=== PATIENT | male | born 1960 | race Caucasian/White ===

== ENCOUNTER 2022-06-16 20:07 | Observation (INO) | payer BC ==
[2022-06-16 21:30] LABS: Absolute Lymphocytes (CBC) 2.3 K/uL (0.7-4.9); Hematocrit 43.2 % (39.6-49.0); Lymphocytes % 15.4 % (15.3-44.8); MCV 90.9 fL (80-100); MPV 9.3 fL (7.6-11.3); RBC Red Blood Cell Count 4.75 M/uL (4.33-5.43)
[2022-06-16 21:49] LABS: Albumin 3.7 g/dL (3.4-5.0); Bilirubin Direct 0.1 mg/dL (0-0.2); Bilirubin Total 0.5 mg/dL (0.2-1.0); Magnesium 1.9 mg/dL (1.8-2.4); Potassium 4.4 mmol/L (3.5-5.1); Protein, Total 7.3 g/dL (6.4-8.2); Troponin High Sensitivity 5.5 pg/mL (<58.9)
--- NOTE | 2022-06-16 21:51 | RAD REPORT ---
EXAM DESCRIPTION: RAD - Chest Single View - 06/16/2022 9:43 pm CLINICAL HISTORY: syncope Chest pain. COMPARISON: No comparisons FINDINGS: Portable technique limits examination quality. The lungs are grossly clear. The heart is normal in size. No displaced fractures. IMPRESSION: No acute intrathoracic process suspected.
--- NOTE | 2022-06-16 22:16 | EDPHYS ---
Physician Documentation [facility] Name: Deejay Martin Age: 62 yrs Sex: Male : 1960 Arrival Date: 06/16/2022 Time: 20:10 Bed 16 Private MD: ED Physician Nando Pederson HPI: 06/16 20:37 This 62 yrs old Male presents to ER via EMS with complaints of Syncope. ms3 20:37 The patient has experienced syncope. 62-year-old male with past medical history of ms3 hypertension presents via [facility] after having dizziness, nausea, sweating and laying down while at [employer]. Patient states he then got up and was going back to [employer] study when he passed out. EMS states patient's blood glucose level was 100, patient was normotensive, 4 mg of Zofran was administered. Patient denies pain at this time. Patient states he was unconscious for approximately 5 minutes. Patient endorses nausea, shortness of breath. Patient denies chest pain, vomiting, abdominal pain.. Historical: - Allergies: 20:18 PENICILLINS; bm7 - Home Meds: 20:18 propranolol 10 mg Oral tab 1 tab every 8 hours [Active]; bm7 - PMHx: 20:18 Hypertensive disorder; bm7 - PSHx: 20:18 None; bm7 - Immunization history:: Adult Immunizations up to date, Client reports receiving the 2nd dose of the Covid vaccine, Client reports receiving the 1st dose of the Covid vaccine. - Social history:: Smoking status: Patient denies any tobacco usage or history of. ROS: 20:37 Constitutional: Negative for fever, and chills. Neck: Negative for injury, pain, and ms3 swelling, Cardiovascular: Negative for chest pain, and palpitations. Respiratory: Negative for shortness of breath, cough, wheezing, and pleuritic chest pain. 20:37 Skin: Negative for injury, rash, and discoloration. 20:37 Abdomen/GI: Positive for nausea. 20:37 Neuro: Positive for dizziness, syncope. 20:37 All other systems are negative. Exam: 20:24 ECG was reviewed by the Attending Physician. ms3 20:37 Abdomen/GI: Exam negative for acute changes, abnormal bowel sounds, discomfort, ms3 distension, guarding, tenderness. 20:37 Head/Face: Normocephalic, atraumatic. Eyes: Pupils equal round and reactive to light, extra-ocular motions intact. Lids and lashes normal. Conjunctiva and sclera are non-icteric and not injected. Periorbital areas with no swelling, redness, or edema. Neck: Trachea midline, no cervical lymphadenopathy. Supple, full range of motion without nuchal rigidity, or vertebral point tenderness. No Meningismus. Chest/axilla: Normal chest wall appearance and motion. Nontender with no deformity. Cardiovascular: Regular rate and rhythm with a normal S1 and S2. No gallops, murmurs, or rubs. Normal PMI, no JVD. No pulse deficits. Respiratory: Lungs have equal breath sounds bilaterally, clear to auscultation and percussion. No rales, rhonchi or wheezes noted. No increased work of breathing, no retractions or nasal flaring. Back: No spinal tenderness. No costovertebral tenderness. Full range of motion. Skin: Warm, dry with normal turgor. Normal color with no rashes, no lesions, and no evidence of cellulitis. MS/ Extremity: Pulses equal, no cyanosis. Neurovascular intact. Full, normal range of motion. Psych: Awake, alert, with orientation to person, place and time. Behavior, mood, and affect are within normal limits. Vital Signs: 20:16 BP 117 / 64; Pulse 66; Resp 16; Temp 97.7(TE); Pulse Ox 100% on R/A; Weight 79.38 kg bm7 (R); Height 5 ft. 10 in. (177.80 cm); Pain 0/10; 21:50 BP 138 / 84; Pulse 64; Pulse Ox 97% on R/A; Pain 0/10; ke1 23:50 BP 132 / 78; Pulse 68; Resp 17; Temp 97.8(O); Pulse Ox 100% on R/A; Pain 0/10; ke1 20:16 Body Mass Index 25.11 (79.38 kg, 177.80 cm) bm7 MDM: 20:16 Patient medically screened. ms3 20:37 Differential Diagnosis: aortic aneurysm, cardiac arrhythmia, idiopathic syncope, ms3 vasovagal episode. 21:10 Data interpreted: compliance monitor: rate is 69 beats/min, rhythm is normal sinus rhythm, ms3 regular, with no ectopy, Interpretation: normal rate, normal rhythm. 22:15 Data reviewed: vital signs, nurses notes, lab test result(s), radiologic studies, and ms3 as a result, I will admit patient. Counseling: I had a detailed discussion with the patient and/or guardian regarding: the historical points, exam findings, and any diagnostic results supporting the discharge/admit diagnosis, lab results, radiology results, the need for further work-up and treatment in the hospital. ED course: Discussed case with TASHA Whittaker and she accepts on behalf of Dr Glynn. 06/16 20:17 Order name: Basic Metabolic Panel ms3 06/16 20:17 Order name: CBC with Diff ms3 06/16 20:17 Order name: LFT's ms3 06/16 20:17 Order name: Magnesium ms3 06/16 20:17 Order name: Troponin HS ms3 06/16 20:18 Order name: Lipase ms3 06/16 21:34 Order name: CBC with Automated Diff EDMS 06/16 21:49 Order name: Basic Metabolic Panel EDMS 06/16 21:49 Order name: Liver (Hepatic) Function EDMS 06/16 21:49 Order name: Troponin High Sensitivity EDMS 06/16 21:49 Order name: Magnesium EDMS 06/16 21:49 Order name: Lipase EDMS 06/16 22:19 Order name: SARS RAPID bb 06/16 22:50 Order name: SARS-COV-2 Antigen Rapid EDMS 06/16 20:17 Order name: XRAY Chest (1 view) ms3 06/16 20:17 Order name: EKG; Complete Time: 20:18 ms3 06/16 20:17 Order name: Cardiac monitoring; Complete Time: 20:30 ms3 06/16 20:17 Order name: EKG - Nurse/Tech; Complete Time: 20:30 ms3 06/16 20:17 Order name: IV Saline Lock; Complete Time: 21:48 ms3 06/16 20:17 Order name: Labs collected and sent; Complete Time: 21:48 ms3 06/16 20:17 Order name: O2 Per Protocol; Complete Time: 20:30 ms3 06/16 20:17 Order name: O2 Sat Monitoring; Complete Time: 20:30 ms3 06/16 20:17 Order name: CT Abd/Pelvis - IV Contrast Only ms3 06/16 21:52 Order name: RAD EDMS 06/16 22:18 Order name: CT EDMS EC:24 Rate is 68 beats/min. Rhythm is regular. QRS [place] is Normal. No Q waves. Clinical ms3 impression: NSR w/ Non-specific ST/T Changes. Interpreted by me. Reviewed by me. Administered Medications: No medications were administered Disposition Summary: 06/16/22 22:15 Hospitalization Ordered Hospitalization Status: Observation ms3 Provider: Shawn Glynn ms3 Location: Telemetry/MedSurg (observation) ms3 Condition: Stable ms3 Problem: new ms3 Symptoms: are unchanged ms3 Bed/Room Type: Standard ms3 Room Assignment: 415(06/16/22 23:06) mw Diagnosis - Syncope ms3 - Nausea ms3 - Essential (primary) hypertension ms3 Forms: - Medication Reconciliation Form ms3 - SBAR form ms3 Signatures: Dispatcher [employer] EDMS Sandra Lara RN RN mw Niurka Bazzi, WASHING MACHINE OPERATOR-C WASHING MACHINE OPERATOR-Csnw Nando Pederson DO DO ms3 Rosana Samson, RN RN Juany Saha, PA PA sb3 Corrections: (The following items were deleted from the chart) 23:06 22:15 ms3 mw
--- NOTE | 2022-06-16 22:16 | ER ---
Nurse's Notes [facility] Name: Deejay Martin Age: 62 yrs Sex: Male : 1960 Arrival Date: 06/16/2022 Time: 20:10 Bed 16 Private MD: Diagnosis: Syncope;Nausea;Essential (primary) hypertension Presentation: 06/16 20:16 Chief complaint: EMS states: We were initially called out for an unresponsive patient. bm7 When we arrived the patient was responsive and alert. The patient had a syncopal episode with positive LOC. Coronavirus screen: At this time, the client does not indicate any symptoms associated with coronavirus-19. Ebola Screen: No symptoms or risks identified at this time. Initial Sepsis Screen: Does the patient meet any 2 criteria? No. Patient's initial sepsis screen is negative. Does the patient have a suspected source of infection? No. Patient's initial sepsis screen is negative. Risk Assessment: Do you want to hurt yourself or someone else? Patient reports no desire to harm self or others. Onset of symptoms is unknown. 20:16 Method Of Arrival: EMS: [facility] bm7 20:16 Acuity: NAHID 3 bm7 20:20 Care prior to arrival: Medication(s) given: zofran 4 mg, IV initiated. 20 GA, in the bm7 left wrist, Glucose check: 100. Triage Assessment: 20:18 General: Appears in no apparent distress. uncomfortable, Behavior is calm, cooperative, bm7 appropriate for age. Pain: Denies pain. EENT: No deficits noted. No signs and/or symptoms were reported regarding the EENT system. Neuro: Level of Consciousness is awake, alert, obeys commands, Oriented to person, place, time, situation, Kiln Repairer are equal bilaterally Weakness in bilateral leg(s) Speech is normal, Facial symmetry appears normal, Pupils are PERRLA, Reports dizziness, a syncopal episode weakness. Cardiovascular: No deficits noted. Rhythm is sinus rhythm Chest pain is denied. Respiratory: No deficits noted. GI: Abdomen is round non-distended, Bowel sounds present X 4 quads. Reports nausea. : No deficits noted. No signs and/or symptoms were reported regarding the genitourinary system. Derm: No deficits noted. No signs and/or symptoms reported regarding the dermatologic system. Musculoskeletal: No deficits noted. No signs and/or symptoms reported regarding the musculoskeletal system. Historical: - Allergies: 20:18 PENICILLINS; bm7 - Home Meds: 20:18 propranolol 10 mg Oral tab 1 tab every 8 hours [Active]; bm7 - PMHx: 20:18 Hypertensive disorder; bm7 - PSHx: 20:18 None; bm7 - Immunization history:: Adult Immunizations up to date, Client reports receiving the 2nd dose of the Covid vaccine, Client reports receiving the 1st dose of the Covid vaccine. - Social history:: Smoking status: Patient denies any tobacco usage or history of. Screenin:20 Abuse screen: Denies threats or abuse. Nutritional screening: No deficits noted. ke1 Tuberculosis screening: No symptoms or risk factors identified. Fall Risk No fall in past 12 months (0 pts). No secondary diagnosis (0 pts). IV access (20 points). Ambulatory Aid- None/Bed Rest/Nurse Assist (0 pts). Gait- Normal/Bed Rest/Wheelchair (0 pts) Mental Status- Oriented to own ability (0 pts). Total Perez Fall Scale indicates No Risk (0-24 pts). Assessment: 21:03 Reassessment: unable to draw blood, lab called. ke1 Vital Signs: 20:16 BP 117 / 64; Pulse 66; Resp 16; Temp 97.7(TE); Pulse Ox 100% on R/A; Weight 79.38 kg 7 (R); Height 5 ft. 10 in. (177.80 cm); Pain 0/10; 21:50 BP 138 / 84; Pulse 64; Pulse Ox 97% on R/A; Pain 0/10; ke1 23:50 BP 132 / 78; Pulse 68; Resp 17; Temp 97.8(O); Pulse Ox 100% on R/A; Pain 0/10; ke1 20:16 Body Mass Index 25.11 (79.38 kg, 177.80 cm) 7 ED Course: 20:10 Patient arrived in ED. mw2 20:11 Nando Pederson DO is Attending Physician. ms3 20:18 Triage completed. bm7 20:18 Arm band placed on right wrist. EKG completed in triage. Results shown to MD. 7 20:20 Bed in low position. Call light in reach. Side rails up X 1. ke1 20:20 Maintain EMS IV. Site clean \T\ dry. Gauge \T\ site: 20 G LAC. ke 1 20:29 Ashia Gallo, RN is Primary Nurse. ke1 22:14 Shawn Glynn MD is Hospitalizing Provider. ms3 06/17 00:10 No provider procedures requiring assistance completed. Patient admitted, IV remains in ke1 place. 00:44 RAD In Process Unspecified. EDMS 00:47 CT In Process Unspecified. EDMS Administered Medications: No medications were administered Medication: 00:11 VIS not applicable for this client. ke1 Outcome: 06/16 22:15 Decision to Hospitalize by Provider. ms3 06/17 00:10 Admitted to Med/surg accompanied by nurse. ke1 Condition: good Instructed on the need for admit. 00:11 Patient left the ED. ke1 Signatures: Dispatcher [employer] EDMS Grant Archer mw2 Nando Pederson, DO ms3 Rosana Samson, RN RN bm7 Ashia Gallo, MERLY RN ke1
--- NOTE | 2022-06-16 22:16 | RAD REPORT ---
EXAM DESCRIPTION: CTAbdomen Pelvis W Contrast - 06/16/2022 10:09 pm CLINICAL HISTORY: Abdominal pain. syncope, nausea COMPARISON: <Comparisons> TECHNIQUE: Biphasic CT imaging of the abdomen and pelvis was performed with 100 ml non-ionic IV cont rast. All CT scans are performed using dose optimization technique as appropriate and may include automated exposure control or mA/KV adjustment according to patient size. FINDINGS: The lung bases are clear. The liver, spleen, pancreas, adrenal glands and kidneys are within normal limits. No bowel obstruction, free air, free fluid or abscess. Significant stool is present in the colon. The appendix is normal. No evidence of significant lymphadenopathy. No suspicious bony findings. IMPRESSION: No acute intra-abdominal or pelvic finding. Significant constipation.
--- NOTE | 2022-06-16 22:46 | P.HP ---
Certification for Inpatient Patient admitted to: Observation With expected LOS: <2 Midnights Patient will require the following post-hospital care: None Practitioner: I am a practitioner with admitting privileges, knowledge of patient current condition, hospital course, and medical plan of care. Services: Services provided to patient in accordance with Admission requirements found in Title 42 Section 412.3 of the Code of Federal Regulations <Juany Melo - Last Filed: 06/16/22 23:47> Patient History Date of Service: 06/16/22 Reason for admission: Syncope History of Present Illness: Patient is a 62 year-old male with hypertension who presented to the ED via EMS following syncopal episode. Patient reports that he was at [facility] study this afternoon when he started to get diaphoretic and nauseous. He laid down for a little bit and then when he got up to go home, he collapsed. Family states that he was "unconscious" for 5 minutes. Vitals and BGL were stable per EMS. He is complaining of nausea and dizziness in the ED. Has a white count of 15, but all other labs are within normal limits. Chest xray negative. CT abdomen pelvis only showing significant constipation. Patient denies abdominal pain or feeling constipated, reports daily BMs. Vital signs have remained stable. ED provider wishes to admit patient for observation. Home medications list reviewed: Yes - Past Medical/Surgical History Diabetic: No -: Hypertension -: Ruano Sarcoma -: Knee Surgery Psychosocial/ Personal History: Patient is . - Family History Mother -: Heart disease Notes: pulmonary HTN Father -: Heart disease Notes: pulmonary HTN - Social History Smoking Status: Never smoker Alcohol use: Yes CD- Drugs: No Caffeine use: Yes Place of Residence: Home <KameronJuany - Last Filed: 06/16/22 23:47> Date of Service: 06/17/22 <Shawn Glynn - Last Filed: 06/17/22 10:24> Allergies Penicillins Allergy (Verified 06/16/22 23:35) Hives/Rash Review of Systems Gastrointestinal: Nausea Neurological: Other (Syncope, Dizziness) <KameronJuany - Last Filed: 06/16/22 23:47> Physical Examination - Physical Exam General: Alert, In no apparent distress, Oriented x3 HEENT: Atraumatic, PERRLA, EOMI, Sclerae nonicteric Neck: Supple, 2+ carotid pulse no bruit, No LAD, Without JVD or thyroid abnormality Respiratory: Clear to auscultation bilaterally, Normal air movement Cardiovascular: Regular rate/rhythm, Normal S1 S2 Gastrointestinal: Normal bowel sounds, No tenderness Musculoskeletal: No tenderness Integumentary: No rashes Neurological: Normal gait, Normal speech, Normal strength at 5/5 x4 extr, Normal tone, Normal affect - Studies Laboratory Data (last 24 hrs) 06/16/22 21:13: WBC 15.00 H, Hgb 14.4, Hct 43.2, Plt Count 203 06/16/22 21:13: Sodium 139, Potassium 4.4, BUN 20 H, Creatinine 1.28, Glucose 120 H, Magnesium 1.9, Total Bilirubin 0.5, AST 24, ALT 36, Alkaline Phosphatase 40 L, Lipase 107 <Juany Melo - Last Filed: 06/16/22 23:47> - Studies Laboratory Data (last 24 hrs) 06/16/22 21:13: WBC 15.00 H, Hgb 14.4, Hct 43.2, Plt Count 203 06/16/22 21:13: Sodium 139, Potassium 4.4, BUN 20 H, Creatinine 1.28, Glucose 120 H, Magnesium 1.9, Total Bilirubin 0.5, AST 24, ALT 36, Alkaline Phosphatase 40 L, Lipase 107 <Shawn Glynn - Last Filed: 06/17/22 10:24> Assessment and Plan - Problems (Diagnosis) (1) Syncope Current Visit: Yes Status: Acute Qualifiers: Syncope type: unspecified Qualified Code(s): R55 - Syncope and collapse (2) Hypertension Current Visit: Yes Status: Chronic Qualifiers: Hypertension type: primary hypertension Qualified Code(s): I10 - Essential (primary) hypertension - Plan -Patient is admitted for observation. Monitor on telemetry overnight -Echocardiogram and carotid ultrasound ordered for the morning. Patient does have family history of pulmonary hypertension -Will repeat troponin. Initial was negative. Consider cardiology consult. -WBC elevated. No source of infection has been identified. Patient is afebrile. Will recheck in the morning. -Lipid panel and TSH ordered for the morning. -Gentle IV hydration as BUN was slightly elevated. -Promethazine as needed for nausea. Patient reports adverse reaction to zofran. -Meclizine as needed for dizziness. Consider head CT if symptoms do not improve. -Monitor and replete electrolytes per protocol -Reconcile and continue home medications -Lovenox for VTE prophylaxis -Full code Discharge Plan: Home Plan to discharge in: 24 Hours - Advance Directives Does patient have a Living Will: No Does patient have a Durable POA for Healthcare: No - Code Status/Comfort Care Code Status Assessed: Yes (Full) Critical Care: No Time Spent Managing Pts Care (In Minutes): 50 <Juany Melo - Last Filed: 06/16/22 23:47> Physician Review: Patient Assessed, Agree with Above Assessment and Plan <Shawn Glynn - Last Filed: 06/17/22 10:24>
[2022-06-16 22:50] LABS: SARS-CoV-2 Antigen Rapid Res Negative (Negative)
[2022-06-16] MEDS ORDERED: PROMETHAZINE INJ 25 MG/ML AMP IV PRN (23:35)
[2022-06-16] MEDS ORDERED: MECLIZINE HCL 12.5 MG TAB PO PRN (23:35)
[2022-06-16] MEDS ORDERED: ONDANSETRON 4 MG/2 ML VIAL IV PRN (23:35)
[2022-06-16] MEDS ORDERED: ACETAMINOPHEN 500 MG TAB PO PRN (23:35)
[2022-06-16] MEDS ORDERED: DOCUSATE NA 100 MG CAP PO PRN (23:35)
[2022-06-16 23:51] VITALS: BMI 25.1
[2022-06-17] MEDS: NA CHLORIDE 0.9% 1,000 ML IV SCH ×2 (00:26→07:59)
[2022-06-17 02:06] LABS: Urine Bilirubin NEGATIVE (Negative); Urine Blood Negative (Negative); Urine Clarity Clear (Clear); Urine Color Light-Yellow (Yellow); Urine Glucose NEGATIVE (Negative); Urine Protein NEGATIVE (Negative); Urine RBC <5 /HPF (None Seen); Urine Urobilinogen Normal (Normal); Urine pH 7.5 (5.0-7.0)
[2022-06-17 02:15] LABS: Specific Gravity > 1.030 (1.005-1.030)
[2022-06-17 03:45] LABS: Absolute Lymphocytes (CBC) 1.2 K/uL (0.7-4.9); Hematocrit 41.2 % (39.6-49.0); Lymphocytes % 12.2 % (15.3-44.8); MCV 88.7 fL (80-100); MPV 8.9 fL (7.6-11.3); RBC Red Blood Cell Count 4.64 M/uL (4.33-5.43)
[2022-06-17 04:27] LABS: CKMB Creatine Kinase MB 1.5 ng/mL (1.0-3.6); Magnesium 2.1 mg/dL (1.8-2.4); Phosphorus 3.4 mg/dL (2.5-4.9); Potassium 4.2 mmol/L (3.5-5.1); Thyroid Stimulating Hormone 0.747 uIU/mL (0.360-3.740)
[2022-06-17] MEDS: ENOXAPARIN 40 MG/0.4 ML SQ SCH ×2 (07:59→08:02)
[2022-06-17 08:08] VITALS: O2SAT 98
--- NOTE | 2022-06-17 08:22 | RAD REPORT ---
EXAM DESCRIPTION: CT - Head Brain Wo Cont - 06/17/2022 7:14 am CLINICAL HISTORY: dizziness, syncope Headache, drowsiness, syncope COMPARISON: No comparisons TECHNIQUE: All CT scans are performed using dose optimization technique as appropriate and may inclu de automated exposure control or mA/KV adjustment according to patient size. FINDINGS: No intracranial hemorrhage, hydrocephalus or extra-axial fluid collection.No areas of brai n edema or evidence of midline shift. The paranasal sinuses and mastoids are clear. The calvarium is intact. IMPRESSION: No acute intracranial abnormality.
--- NOTE | 2022-06-17 08:32 | RAD REPORT ---
EXAM DESCRIPTION: US - CP - 06/17/2022 5:56 am CLINICAL HISTORY: syncope Headache, drowsiness, syncope COMPARISON: No comparisons TECHNIQUE: Real-time sonographic evaluation of both carotid systems was performed. Doppler interroga tion was performed with waveform tracing bilaterally. FINDINGS: Normal high resistance waveforms are noted in both external carotid arteries. The common c arotid arteries and internal carotid arteries show normal low resistance waveforms. Mild soft plaque is seen left carotid bulb. Peak systolic and end diastolic velocity values and the I CA/CCA ratios are in the non-hemodynamically significant range. Antegrade flow seen in both vertebral arteries. IMPRESSION: Mild soft plaque is seen left carotid bulb. No evidence of a hemodynamically significant stenosis.
[2022-06-17 08:39] VITALS: BP 123/66; TEMP 96.6
--- NOTE | 2022-06-17 10:27 | P.DS ---
Admission Date: 06/16/22 Discharge Date: 06/17/22 Primary Care Provider: Dr. Campbell Disposition: ROUTINE DISCHARGE Discharge Condition: GOOD Reason for Admission: Syncope Consultations: 1. 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 He was admitted to the Medicine service for further evaluation. Orthostatic vital signs were negative. A CT head revealed, "no acute intracranial abnormality." A carotid ultrasound revealed, "mild soft plaque is seen left carotid bulb. No evidence of a hemodynamically significant stenosis." A transthoracic echocardiogram was performed and formal reading is pending. Per Dr. Menon, who reviewed the images, his study was within normal limits. Of note, there was concern from a physician bystander that he may not have had a pulse for several minutes; however, Mr. Martin endorses doubt on this concern. For thorough evaluation, he was maintained on telemetry and a Cardiology consultation was obtained. He was evaluated by Dr. Menon who has cleared him for discharge with an outpatient follow-up. Dr. Menon will arrange for an outpatient event monitor. On 06/17/2022, he was seen on morning rounds and deemed medically stable for discharge. He was discharged with instructions to schedule follow-up appointments with his PCP (Dr. Campbell) in 3-5 days and with Cardiology (Dr. Menon) in 5-7 days. He was told to use [id number] medications (docusate, MiraLAX) for his constipation. He was given the opportunity to ask questions and reported no further questions. Furthermore, all questions were answered to the best of my ability. Today, I personally spent 20 minutes on his case, of which greater than 50% of the time was spent in patient education, counseling, and coordination of care as described above. Vital Signs/Physical Exam: Temp Pulse Resp BP Pulse Ox 96.6 F L 78 16 123/66 98 06/17/22 08:00 06/17/22 08:00 06/17/22 08:00 06/17/22 08:00 06/17/22 08:00 General: Alert, In no apparent distress, Oriented x3 HEENT: Atraumatic, PERRLA, Mucous membr. moist/pink, EOMI, Sclerae nonicteric Neck: Supple, JVD not distended Respiratory: Clear to auscultation bilaterally, Normal air movement Cardiovascular: No edema, Regular rate/rhythm, Normal S1 S2, No gallops, No rubs, No murmurs Gastrointestinal: Normal bowel sounds, Soft and benign, Non-distended, No tend erness, No rebound, No guarding Musculoskeletal: No clubbing Integumentary: No rashes Neurological: Normal gait, Normal speech, Normal strength at 5/5 x4 extr, Normal tone, Sensation intact, Cranial nerves 3-12 intact, Normal affect Laboratory Data at Discharge: WBC 9.70 K/uL (4.3-10.9) D 06/17/22 02:51 Hgb 14.2 g/dL (13.6-17.9) 06/17/22 02:51 Hct 41.2 % (39.6-49.0) 06/17/22 02:51 Plt Count 193 K/uL (152-406) 06/17/22 02:51 Sodium 138 mmol/L (136-145) 06/17/22 02:51 Potassium 4.2 mmol/L (3.5-5.1) 06/17/22 02:51 BUN 17 mg/dL (7-18) 06/17/22 02:51 Creatinine 1.03 mg/dL (0.55-1.3) 06/17/22 02:51 Glucose 129 mg/dL (74-106) H 06/17/22 02:51 Phosphorus 3.4 mg/dL (2.5-4.9) 06/17/22 02:51 Magnesium 2.1 mg/dL (1.8-2.4) 06/17/22 02:51 Total Bilirubin 0.5 mg/dL (0.2-1.0) 06/16/22 21:13 AST 24 U/L (15-37) 06/16/22 21:13 ALT 36 U/L (12-78) 06/16/22 21:13 Alkaline Phosphatase 40 U/L (45-117) L 06/16/22 21:13 Triglycerides 89 mg/dL (<150) 06/17/22 02:51 Cholesterol 203 mg/dL (<200) H 06/17/22 02:51 HDL Cholesterol 68 mg/dL (40-60) H 06/17/22 02:51 Cholesterol/HDL Ratio 2.99 06/17/22 02:51 Lipase 107 U/L (73-393) 06/16/22 21:13 Home Medications: Propranolol [Inderal*] 20 mg PO DAILY 06/17/22 Physician Discharge Instructions: 1. Please schedule a follow-up with your PCP (Dr. Campbell) in 3-5 days 2. Please schedule a follow-up with Cardiology (Dr. Menon) in 5-7 days Diet: Regular Activity: Ad osng Followup: Gucci Menon MD [ACTIVE - CAN ADMIT] - Jesse Campbell MD [ACTIVE - CAN ADMIT] - Time spent managing pt's care (in minutes): 20
--- NOTE | 2022-06-17 12:13 | CON ---
Date of Consultation: 06/17/2022 Reason For Consultation: Syncope. History Of Present Illness: Mr. Martin is 62. Has a history of hypertension for which he takes [place] al. No previous cardiac history otherwise. [place] when he was feeling nauseated, very joel phoretic, was in company of physician, Dr. Luz. Apparently had an episode where he could not jamila mber what happened, but he was feeling like he had to sit down and according to him his bystanders co uld not feel pulse or blood pressure, but when the ambulance got there, he did have blood pressure an d pulse. He does not report any chest pain or palpitation, fever or chills, but had nausea, vomiting , and diaphoresis. Has been constipated. So far, his workup had been negative included chest x-ray, CT of the abdomen. He has an echocardiogram and a carotid Doppler pending. Allergies: INCLUDE PENICILLIN. Medications: At home include Inderal. Past Medical History: Hypertension. Review of Systems: Positive for constipation. Social History: Negative. Family History: Noncontributory. Physical Examination: Vital Signs: His examination done by Dr. Glynn showed vital signs stable, afebrile. HEENT: Negative. Neck: Supple with no bruit. Chest: Clear. Cardiac: Normal. Abdomen: Benign. Extremities: Revealed no clubbing, cyanosis, or edema. Diagnostic Data: All within normal limits. Echocardiogram and carotid are pending. Impression And Plan: Syncope, most likely secondary to dehydration from what sounds like a gastroint estinal illness. Certainly, it could have been bradycardic or hypotensive and may have had a vagal r eaction possibly secondary to constipation. Nevertheless, echocardiogram is pending. Carotid Dopple r is pending. He can go home after D-dimer is normal. I think he needs to have an outpatient event monitor 7 days and an MPI considering his age and his risk factors and we will see what that shows. Case was discussed with Dr. Glynn. ELIDIA/KRISTIE Voice ID: [id number] Report ID: [id number]
--- NOTE | 2022-06-17 15:07 | EKG ---
Test Date: 2022-06-16 Test Time: 20:24:27 Spring Fitter: FELISA MEASUREMENT RESULTS: Intervals: Rate: 68 KS: 184 QRSD: 98 QT: 442 QTc: 469 [place]: P: 67 KS: 184 QRS: 45 T: 50 INTERPRETIVE STATEMENTS: Normal sinus rhythm Septal infarct, age undetermined Abnormal ECG Compared to ECG 10/07/2007 09:46:58 Myocardial infarct finding now present Sinus bradycardia no longer present Electronically Signed On 06-17-22 15:06:34 CDT by Matthieu Borrego
--- NOTE | 2022-06-18 07:03 | ECHO ---
HEIGHT: 5 ft 10 in WEIGHT: 175 lb 0 oz DATE OF STUDY: 06/17/[address]: Juany Melo 2-DIMENSIONAL: YES M.MODE: YES DOPPLER: YES COLOR FLOW: YES TDS: PORTABLE: YES DEFINITY: NO BUBBLE STUDY: NO DIAGNOSIS: SYNCOPE CARDIAC HISTORY: CATHERIZATION: SURGERY: PROSTHETIC VALVE: PACEMAKER: MEASUREMENTS (cm) DIASTOLIC (NORMALS) SYSTOLIC (NORMALS) IVSd 1.0 (0.6-1.2) LA Diam 3.6 (1.9-4.0) LVEF 62% LVIDd 4.5 (3.5-5.7) LVIDs 3.0 (2.0-3.5) %FS 33% LVPWd 0.9 (0.6-1.2) Ao Diam 3.0 (2.0-3.7) 2 DIMENSIONAL ASSESSMENT: RIGHT ATRIUM: NORMAL LEFT ATRIUM: NORMAL RIGHT VENTRICLE: NORML LEFT VENTRICLE: NORMAL TRICUSPID VALVE: NORMAL MITRAL VALVE: MILD MITRAL REGURGITATION PULMONIC VALVE: NORMAL AORTIC VALVE: NORMAL PERICARDIAL EFFUSION: NONE AORTIC ROOT: NORMAL LEFT VENTRICULAR WALL MOTION: NORMAL. DOPPLER/COLOR FLOW: MILD MITRAL REGURGITATION. COMMENTS: NORMAL LEFT VENTRICULAR EJECTION FRACTION 55-60%. NORMAL WALL MOTION. NORMAL DIASTOLIC FUNCTION. MILD MITRAL REGURGITATION. TECHNOLOGIST: NABILA GARZA
== END 2022-06-17 10:58 | disposition home or self-care (01) ==
LOC: ER 20:07 → ERHOLD 22:42 → 4TH 23:57
PROVIDERS: ADMIT Internal Medicine; ATTEND Internal Medicine
DX: R55 Syncope and collapse (principal); E86.0 Dehydration; K59.09 Other constipation; I10 Essential (primary) hypertension; Z88.0 Allergy status to penicillin; Z20.822 Contact with and (suspected) exposure to COVID-19
CPT/HCPCS: 93005; 93306; 85025 ×2; 81001; 80048 ×2; 36415; 83735 ×2; 82550; 84100; 80061; 80076; 84443; 84484 ×2; 82553; 83690; 70450; 74177; 71045; 93880; 99285; 87811; Q9967; J7030; G0378 ×2; J1650